=== PATIENT | male | born 1990 | race Caucasian/White ===

== ENCOUNTER → 2018-04-17 | Outpatient (CLI) | payer BC ==
--- NOTE | 2018-04-17 14:35 | Diagnostic Imaging Report ---
PROCEDURE: MR imaging of the brain without contrast. TECHNIQUE: Multiplanar, multisequence MR imaging of the brain was performed without contrast. INDICATION: Chiari malformation status post surgery in 1995 with shunt placement as well as cervical laminectomy. COMPARISON: No prior MRI studies are available for comparison. FINDINGS: The ventricles and sulci are within normal limits. No sulcal effacement, midline shift or hemorrhage is seen. There is no diffusion restriction. Normal expected flow voids within the carotid siphons are seen. Corpus callosum is unremarkable. Sella and parasellar structures are unremarkable. There appears to have been performance of an occipital craniectomy. In addition, there appears to have been performance of upper cervical laminectomy. No hydrocephalus is seen. IMPRESSION: Postsurgical changes of posterior decompression. No hydrocephalus is seen. No acute abnormality is identified. Dictated by: Dictated on workstation # [id number]
== END ==
LOC: RAD 13:21
PROVIDERS: ATTEND Internal Medicine
DX: G93.5 Compression of brain (principal); Z98.890 Other specified postprocedural states; Z98.2 Presence of cerebrospinal fluid drainage device
CPT/HCPCS: 70551

== ENCOUNTER → 2020-06-23 | Outpatient (CLI) | payer BC ==
[~2020-06-23] VITALS: Ht 185 cm; Wt 100.0 kg
[~2020-06-23] MED LIST: BAMLANIVIMAB 700 MG in NS 200 ML IV ONE; EPINEPHrine INJECTION 1 MG/ML AMP IM PRN; diphenhydrAMINE 50 MG/ML INJ (BENADRYL) IV PRN
[2020-06-23 13:59] VITALS: BP 123/67
[2020-06-23 15:51] VITALS: BP 123/65
== END ==
LOC: INFUSION 13:40
PROVIDERS: ATTEND Family Medicine
DX: U07.1 COVID-19 (principal)

== ENCOUNTER → 2021-12-18 | Outpatient (CLI) | payer BC | LOC: CARD 09:00 | PROVIDERS: ATTEND Internal Medicine | DX: I34.0 Nonrheumatic mitral (valve) insufficiency (principal) | CPT/HCPCS: 93306 ==